=== PATIENT | male | born 1980 | race Caucasian/White ===

== ENCOUNTER 2017-11-16 20:30 | Emergency (ER) | payer BC ==
[~2017-11-16] VITALS: Ht 193 cm; Wt 88.0 kg
[2017-11-16 21:06] VITALS: BP 140/74; PULSE 89; RESP 18; TEMP 98.4; O2SAT 100
[2017-11-16] MEDS ORDERED: FAMOTIDINE 20 MG/2 ML VIAL IV STA (22:48)
--- NOTE | 2017-11-16 22:50 | PD ---
HPI Chief Complaint: Cardiac Complaint Time Seen by Provider: 22:27 Travel History International Travel<30 days: No Contact w/Intl Traveler<30days: No Traveled to known affect area: No History of Present Illness HPI Patient is a 36-year-old male on vacation with [place] 5 children in side of the hotel room as well as an patient said this morning after eating a few hours later he felt very nauseous panicky and lasted over 2 hours he thought he might pass out. He took some Tums it helped somewhat and then he came to the ER and was in the waiting room for a few hours by the time he comes to the exam room all his symptoms have resolved however he says he has had a history of gastric issues reflux recently had a barium swallow was well as H. pylori treatment.. Pt seems slightly anxious and somatically pre-occupied on my initial brief evaluation during HPI ROS PFSH Past Medical History Diminished Hearing: No Gastrointestinal Disorders: Yes (HX H. PYLORI) GERD: Yes Immunizations Current: Yes Past Surgical History Thoracic Surgery: Yes (HX NEUMO REPAIR - LEFT SIDE) Social History Alcohol Use: Yes Tobacco Use: No Substance Use: No Allergies-Medications (Allergen,Severity, Reaction): Coded Allergies: cefaclor (Verified Allergy, Severe, 11/16/17) sulfamethoxazole (Verified Allergy, Severe, 11/16/17) trimethoprim (Verified Allergy, Severe, 11/16/17) Reported Meds & Prescriptions Reported Meds & Active Scripts Active Zofran (Ondansetron HCl) 4 Mg Tab 4 Mg PO Q6HR PRN Ativan (Lorazepam) 0.5 Mg Tab 0.5 Mg PO Q8H PRN Review of Systems Except as stated in HPI: all other systems reviewed are Neg HENT: Positive: Vertigo Gastrointestinal: Positive: Nausea Neurologic: Positive: Dizziness Physical Exam Narrative GENERAL: pt awake alert seems anxious SKIN: Warm and dry. HEAD: Atraumatic. Normocephalic. EYES: Pupils equal and round. No scleral icterus. No injection or drainage. ENT: No nasal bleeding or discharge. Mucous membranes pink and moist. NECK: Trachea midline. No JVD. CARDIOVASCULAR: Regular rate and rhythm. RESPIRATORY: No accessory muscle use. Clear to auscultation. Breath sounds equal bilaterally. GASTROINTESTINAL: Abdomen soft, non-tender, nondistended. Hepatic and splenic margins not palpable. no pain with palpation in all quadrant MUSCULOSKELETAL: Extremities without clubbing, cyanosis, or edema. No obvious deformities. NEUROLOGICAL: Awake and alert. No obvious cranial nerve deficits. Motor grossly within normal limits. Five out of 5 muscle strength in the arms and legs. Normal speech. PSYCHIATRIC: Appropriate mood and affect; insight and judgment normal. Data Data Last Documented VS Vital Signs Date Time Temp Pulse Resp B/P (MAP) Pulse Ox O2 Delivery O2 Flow Rate FiO2 11/17/17 00:16 70 16 136/60 (85) 98 11/16/17 21:06 98.4 Orders Orders Electrocardiogram (11/16/17 ) Complete Blood Count With Diff (11/16/17 22:30) Comprehensive Metabolic Panel (11/16/17 22:30) Ckmb (Isoenzyme) Profile (11/16/17 22:30) Troponin I (11/16/17 22:30) Lipase (11/16/17 22:30) Ondansetron Inj (Zofran Inj) (11/16/17 23:00) Famotidine Inj (Pepcid Inj) (11/16/17 22:48) Lorazepam (Ativan) (11/16/17 23:00) CKMB (11/16/17 22:35) CKMB% (11/16/17 22:35) Chest, Pa & Lat (11/16/17 ) Ed Discharge Order (11/17/17 00:05) Labs Laboratory Tests Test 11/16/17 22:35 White Blood Count 7.7 TH/MM3 Red Blood Count 5.22 MIL/MM3 Hemoglobin 16.4 GM/DL Hematocrit 45.6 % Mean Corpuscular Volume 87.3 FL Mean Corpuscular Hemoglobin 31.5 PG Mean Corpuscular Hemoglobin Concent 36.1 % Red Cell Distribution Width 12.9 % Platelet Count 206 TH/MM3 Mean Platelet Volume 8.6 FL Neutrophils (%) (Auto) 75.6 % Lymphocytes (%) (Auto) 16.1 % Monocytes (%) (Auto) 7.0 % Eosinophils (%) (Auto) 0.9 % Basophils (%) (Auto) 0.4 % Neutrophils # (Auto) 5.8 TH/MM3 Lymphocytes # (Auto) 1.2 TH/MM3 Monocytes # (Auto) 0.5 TH/MM3 Eosinophils # (Auto) 0.1 TH/MM3 Basophils # (Auto) 0.0 TH/MM3 CBC Comment AUTO DIFF Differential Comment AUTO DIFF CONFIRMED Platelet Estimate NORMAL Platelet Morphology Comment NORMAL Blood Urea Nitrogen 16 MG/DL Creatinine 1.17 MG/DL Random Glucose 94 MG/DL Total Protein 7.7 GM/DL Albumin 4.2 GM/DL Calcium Level 9.5 MG/DL Alkaline Phosphatase 58 U/L Aspartate Amino Transf (AST/SGOT) 25 U/L Alanine Aminotransferase (ALT/SGPT) 35 U/L Total Bilirubin 0.9 MG/DL Sodium Level 138 MEQ/L Potassium Level 3.8 MEQ/L Chloride Level 102 MEQ/L Carbon Dioxide Level 30.3 MEQ/L Anion Gap 6 MEQ/L Estimat Glomerular Filtration Rate 71 ML/MIN Total Creatine Kinase 185 U/L Creatine Kinase MB 1.2 NG/ML Troponin I LESS THAN 0.02 NG/ML Lipase 115 U/L MDM Medical Decision Making Medical Screen Exam Complete: Yes Emergency Medical Condition: Yes Differential Diagnosis pt has vertigo or viral illness and gastroenteritis , vs anxiety vs panic ,vs somatization Narrative Course trop negative and ekg normal and feels better after zofran and ativan will discharge with rx for few ativan and few zofran follow Diagnosis Primary Impression: Nausea Additional Impression: Anxiety Patient Instructions: Acute Nausea and Vomiting (ED), Anxiety (ED), General Instructions Scripts Ondansetron (Zofran) 4 Mg Tab 4 MG PO Q6HR Y for NAUSEA OR VOMITING, #12 TAB 0 Refills Prov: Adeel Adams MD 11/16/17 Lorazepam (Ativan) 0.5 Mg Tab 0.5 MG PO Q8H Y for ANXIETY AND/OR AGITATION, #10 TAB 0 Refills Prov: Adeel Adams MD 11/16/17 Adeel Adams MD Nov 16, 2017 22:50
[2017-11-16 22:53] LABS: AUTOMATED NEUTROPHIL # 5.8 TH/MM3 (1.8-7.7); BASOPHIL % 0.4 % (0.0-2.0); EOSINOPHIL # 0.1 TH/MM3 (0-0.4); EOSINOPHIL % 0.9 % (0.0-4.0); HEMATOCRIT 45.6 % (39.0-51.0); HEMOGLOBIN 16.4 GM/DL (13.0-17.0); LYMPH % 16.1 % (9.0-44.0); LYMPHOCYTE # 1.2 TH/MM3 (1.0-4.8); MEAN CELL VOLUME 87.3 FL (80.0-100.0); MEAN CORPUSCULAR HEMOGLOBIN 31.5 PG (27.0-34.0); MEAN PLATELET VOLUME 8.6 FL (7.0-11.0); MONOCYTE # 0.5 TH/MM3 (0-0.9); NEUT % 75.6 % (16.0-70.0); PLATELET COUNT 206 TH/MM3 (150-450); RED BLOOD COUNT 5.22 MIL/MM3 (4.50-5.90); RED CELL DISTRIBUTION WIDTH 12.9 % (11.6-17.2); WHITE BLOOD COUNT 7.7 TH/MM3 (4.0-11.0)
[2017-11-16 22:54] LABS: MEAN CORPUSCULAR HGB CONC 36.1 % (32.0-36.0)
[2017-11-16] MEDS ORDERED: LORazepam 0.5 MG TAB PO ONE (23:00)
[2017-11-16] MEDS ORDERED: ONDANSETRON HCL 4 MG/2 ML VIAL IV PUSH ONE (23:00)
[2017-11-16 23:10] LABS: ALBUMIN 4.2 GM/DL (3.4-5.0); AST (GOT) 25 U/L (15-37); BICARBONATE 30.3 MEQ/L (21.0-32.0); BLOOD UREA NITROGEN 16 MG/DL (7-18); CALCIUM 9.5 MG/DL (8.5-10.1); CHLORIDE 102 MEQ/L (98-107); CREATININE 1.17 MG/DL (0.60-1.30); GLOMERULAR FILTRATION RATE 71 ML/MIN (>89); GLUCOSE,RANDOM 94 MG/DL (74-106); SODIUM (NA) 138 MEQ/L (136-145)
[2017-11-16 23:12] LABS: ALT (GPT) 35 U/L (12-78)
[2017-11-16 23:15] LABS: ALKALINE PHOSPHATASE 58 U/L (45-117); TOTAL BILIRUBIN ADULT 0.9 MG/DL (0.2-1.0); TOTAL PROTEIN 7.7 GM/DL (6.4-8.2); TROPONIN I LESS THAN 0.02 NG/ML (0.02-0.05)
[2017-11-16] MEDS ORDERED: LORA-392 PO (23:47)
[2017-11-16] MEDS ORDERED: ZOFR4TAB PO (23:47)
--- NOTE | 2017-11-16 23:51 | RADRPT ---
EXAM DATE/TIME: 11/16/2017 23:35 [facility] COMPARISON: No previous studies available for comparison. INDICATIONS : Patient complains of chest discomfort this morning as well as nausea. MEDICAL HISTORY : Hx of collapsed lung. SURGICAL HISTORY : Chest tube. ENCOUNTER: Initial ACUITY: 1 day PAIN SCORE: 2/10 LOCATION: chest FINDINGS: Slight blunting of the left costophrenic angle of undetermined chronicity there is no evidence of foc al infiltrate. No pneumothorax is present. Cardiomediastinal contours are satisfactory. Thoracic skel eton appears grossly intact. CONCLUSION: Slight blunting of left costophrenic angle which may be chronic. Jay Allison MD on November 16, 2017 at 23:47 Board Certified Radiologist. This report was verified electronically.
[2017-11-17 00:16] VITALS: BP 136/60
--- NOTE | 2017-11-17 19:32 | EKG ---
Date Performed: 11/16/2017 Time Performed: 21:16:38 PTAGE: 36 years EKG: Sinus rhythm NORMAL ECG NO PREVIOUS TRACING DOCTOR: Paul Diaz Interpretating Date/Time 11/17/2017 19:29:33
== END 2017-11-17 00:21 | disposition home or self-care (01) ==
LOC: NEPC 20:30
DX: R11.0 Nausea (principal); F41.9 Anxiety disorder, unspecified; R07.89 Other chest pain
CPT/HCPCS: 71046; 80053; 82550; 82552; 83690; 84484; 85025; 93005; 96374; 96375; 99285; J2405